=== PATIENT | female | born 2000 ===

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

== ENCOUNTER → 2022-11-10 | Outpatient (CLI) | payer OTHER ==
[~2022-11-10] MED LIST: IBUP600 PO; Lamisil125 ML PO
== END ==
LOC: LAB 17:36 → LAB SHORT 17:36
PROVIDERS: Registered Nurse Community Health
DX: Z12.4 Encounter for screening for malignant neoplasm of cervix (principal)
CPT/HCPCS: G0145